=== PATIENT | male | born 1975 | race Two or more races ===

== ENCOUNTER 2024-10-07 16:26 | Emergency (ER) | payer BC, SELFPAY ==
[2024-10-07 16:27] VITALS: BMI 26.6
[2024-10-07 16:37] VITALS: BP 132/79; PULSE 82; RESP 16; TEMP 36.9; O2SAT 99
--- NOTE | 2024-10-07 16:41 | XR_ITS ---
Examination: PA lateral chest 2 views TECHNIQUE: Upright PA lateral chest 2 views Exam date and time: October 07, 2024 1655 hours INDICATIONS: Chest pain today. FINDINGS: Normal heart size. Lungs are clear. The osseous structures are intact IMPRESSION: No active disease
--- NOTE | 2024-10-07 16:41 | EKG_ITS ---
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
--- NOTE | 2024-10-07 16:51 | PD.EDRME ---
Rapid Medical Screening Exam RME Arrival date/time: 10/07/24 16:26 This is a 49-year-old male presents to the emergency department with complaints of mild upper chest chest pain. Patient does report history of 2 stents. I have greeted and performed a focused initial assessment of this patient. Initial appropriate labs ordered at this time. A comprehensive ED assessment and evaluation of the patient and analysis of all test and completion of medical decision making process will be conducted by additional ED provider. Chief Complaint: Chest Pain Time Seen by Provider: 10/07/24 16:37 Vital signs: Vital Signs Temperature 98.5 F 10/07/24 16:37 Pulse Rate 82 10/07/24 16:37 Respiratory Rate 16 10/07/24 16:37 Blood Pressure 132/79 H 10/07/24 16:37 Pulse Oximetry (%) 99 10/07/24 16:37 Oxygen Delivery Method Room Air 10/07/24 16:37
[2024-10-07 16:57] LABS: Basophils # (Auto) 0.1 Thou/mm3 (0.0-0.2); Basophils % (Auto) 1 % (0-2.5); Eosinophils # (Auto) 0.2 Thou/mm3 (0.0-0.5); Eosinophils % (Auto) 3 % (0-10); Hematocrit 39.9 % (41.0-53.0); Hemoglobin 15.1 g/dL (13.5-16.0); Immature Granulocytes % (Auto) 0 % (0-0); Immature Granulocytes Auto 0.02 Thou/mm3 (0.00-0.00); Lymphocytes # (Auto) 1.5 Thou/mm3 (1.0-4.8); Lymphocytes % (Auto) 27 % (10-50); Mean Corpuscular HGB Conc 37.8 g/dl (31.0-37.0); Mean Corpuscular Hemoglobin 31.1 pg (25.0-35.0); Mean Corpuscular Volume 82 fL (80-100); Monocytes # (Auto) 0.4 Thou/mm3 (0.0-0.8); Monocytes % (Auto) 7 % (0-12); Neutrophils # (Auto) 3.4 Thou/mm3 (1.8-7.7); Neutrophils % (Auto) 62 % (37-80); Nucleated Red Blood Cell % 0 /100 WBC (0); Platelet Count 230 Thou/mm3 (140-440); RDW Standard Deviation 43.5 fL (35.1-43.9); Red Blood Count 4.86 Miln/mm3 (4.50-5.90); White Blood Count 5.5 Thou/mm3 (3.8-10.6)
[2024-10-07 17:05] LABS: Collection Type, Urine Clean Catch; RBC,Urine 0 /hpf (0-3); Squamous Epithelial Cell,Urine 0 /hpf (0-5)
[2024-10-07 17:15] LABS: Bilirubin,Urine Negative (Negative); Blood,Urine Negative (Negative); Clarity,Urine Clear (Clear/Hazy); Color,Urine Colorless (Lt Yel-Yel); Glucose, Urine 4+ (Negative); Ketones,Urine Negative (Negative); Leukocyte Esterase,Urine Negative (Negative); Nitrite,Urine Negative (Negative); Protein,Urine Negative (Neg - Trace); Specific Gravity,Urine 1.033 (1.001-1.035); Urobilinogen,Urine Negative mg/dL (0.0-1.0); WBC,Urine < 1 /hpf (0-5)
[2024-10-07 17:48] LABS: Alanine Aminotransferase 33 U/L (10-49); Albumin, Serum 4.6 gm/dL (3.5-5.0); Albumin/Globulin Ratio 2.4 (1.2-2.2); Alkaline Phosphatase 140 U/L (46-116); Anion Gap 11 (7-16); Aspartate Amino Transferase 51 U/L (0-34); BUN/Creatinine Ratio 15 Ratio (12-20); Bilirubin,Total 0.3 mg/dL (0.3-1.2); Blood Urea Nitrogen 27 mg/dL (9-23); Calcium 10.6 mg/dL (8.3-10.6); Calcium (Corrected) 10.6 mg/dL (8.5-10.1); Carbon Dioxide 25.1 mMol/L (20.0-31.0); Chloride 94 mMol/L (98-107); Creatinine (Component) 1.8 mg/dL (0.6-1.3); Estimated Creatinine Clearance 45.4 mL/min (>60); Globulin 1.9 gm/dL (2.3-3.5); Lipase 56 U/L (12-53); Magnesium 2.2 mg/dL (1.6-2.6); Osmolality,Calculated 284 (275-295); Sodium 130 mMol/L (136-145); Total Protein 6.5 gm/dL (5.7-8.2); Troponin I < 0.020 ng/mL (0.0-0.045); eGFR 45 See Note
[2024-10-07 17:55] LABS: Glucose 444 mg/dL (74-106)
--- NOTE | 2024-10-07 20:19 | PD.EDCHEST ---
ED Chest Pain RME/HPI General Chief Complaint: Chest Pain Stated Complaint: CHEST PAIN Time Seen by Provider: 10/07/24 16:37 Source: patient Arrival date/time: 10/07/24 16:26 Mode of arrival: ambulatory Limitations: no limitations RME / HPI RME / HPI narrative: 10/07/24 16:26 This is a 49-year-old male presents to the emergency department with complaints of mild upper chest chest pain. Patient does report history of 2 stents. I have greeted and performed a focused initial assessment of this patient. Initial appropriate labs ordered at this time. A comprehensive ED assessment and evaluation of the patient and analysis of all test and completion of medical decision making process will be conducted by additional ED provider. DR WHALEN MAIN ED EVALUATION: 49-year-old male presenting to the Emergency Department via private vehicle with complaints of intermittent chest pain for the past 2-3 days, accompanied by dizziness. The patient has a history of myocardial infarction two years ago with 2 stent placement and states that his current chest pain feels similar to his previous cardiac event. He describes the chest pain as a pressure-like sensation, comes and goes, lasting seconds to minutes. He denies recent fever or travel and has no history of tobacco, alcohol, or substance use. Related Data Home Medications ?Medication ?Instructions ?Recorded ?Confirmed insulin degludec 100 unit/mL (3 80 unit subcut QDAY 02/05/18 08/18/18 mL) subcutaneous pen (Tresiba FlexTouch U-100 insulin) metformin 1,000 mg tablet 1,000 mg PO BID 02/05/18 08/18/18 gemfibrozil 600 mg tablet (Lopid) 600 mg PO BID 02/22/18 08/18/18 metoprolol succinate 50 mg 50 mg PO QDAY 08/18/18 08/18/18 tablet,extended release 24 hr Previous Rx's ?Medication ?Instructions ?Recorded hydrocodone 5 mg-acetaminophen 300 1 tab PO QID PRN pain #40 tabs 08/19/18 mg tablet (Vicodin) Allergies Allergy/AdvReac Type Severity Reaction Status Date / Time semaglutide (From Ozempic) Allergy Verified 10/07/24 16:31 Past Medical History Past Medical History NEUROLOGIC: Negative Neurological Disorders or Seizures CARDIAC: Positive Cardiac Disorders, Myocardial Infarction, Angina, Coronary Artery Disease, Hypercholesterolemia, Edema and Hypertension; Negative Congestive Heart Failure RESPIRATORY: Positive Asthma and Bronchitis; Negative Chronic Obstructive Pulmonary Disease (COPD) GASTROINTESTINAL: Negative Gastrointestinal Disorders GENITOURINARY: Positive Inguinal Hernia (Repaired); Negative Genitourinary Disorders or Renal Disease MUSCULOSKELETAL: Positive Musculoskeletal Disorders and Fractures (right hand) ENDOCRINE: Positive Endocrine Disorders and Diabetes Mellitus Type 2; Negative Diabetes Mellitus Type 1 or Hypothyroidism HEMATOLOGIC: Negative Blood Disorders or Anemia PSYCHO/SOCIAL: Positive Depression (long time ago) OTHER HISTORY: Positive Blood Transfusions, Chemotherapy (Lymphoma), Radiation Therapy (30 years ago) and Chicken Pox; Negative Hospitalization, Autoimmune Disease, Falls, Blood Transfusion Reaction, Anesthesia Reactions or Organ Transplant Family History FAMILY HISTORY: Positive Family Cancer (mom-stomach tumor, benign) Surgical History SURGICAL: Positive Cardiac Surgery, Coronary Stent and Angiogram; Negative Organ Transplant Social History SMOKING STATUS: Never smoker ED Exam Narrative Physical exam: GENERAL APPEARANCE: alert and oriented x 4, well-developed, well-nourished, no acute distress VITALS: All vitals were reviewed and the pulse ox is 98% on room air, which is normal according to my interpretation. HEENT: Normocephalic, atraumatic; pupils equal, round, reactive to light; EOMI; mucous membranes pink, moist; oropharynx clear NECK: Supple LUNGS: CTABL; no wheezes, no rales, no rhonchi HEART: Regular rate, regular rhythm; normal S1, S2; no murmurs ABDOMEN: non distended; normal BS; soft, no tenderness, no guarding, no rebound; no masses, no organomegaly, no hernia BACK: no CVA tenderness EXTREMITIES: atraumatic; no edema NEUROLOGIC: awake; alert and oriented x4; cranial nerves II-XII grossly intact; no focal sensory or motor deficits PSYCHIATRIC: appropriate mood and affect SKIN: warm, dry, normal color; no rashes General Limitations: Present no limitations Course Course Course Narrative: CXR is ordered for determining etiology of chest pain. Quality Measures none Orders Category Date Time Status EKG (ED ONLY) *Do not use* NOW Care 10/07/24 16:41 Completed NPO STAT Care 10/07/24 16:41 Completed EKG (ED Only) Stat Exams 10/07/24 16:41 Draft XR chest 2V Stat Exams 10/07/24 16:41 Completed A1C [Glycohemoglobin w (eAG)] Stat Lab 10/07/24 21:15 Completed CBC Stat Lab 10/07/24 16:51 Completed Comprehensive Metabolic Panel Stat Lab 10/07/24 16:51 Completed Lipase Stat Lab 10/07/24 16:51 Completed Magnesium Stat Lab 10/07/24 16:51 Completed Troponin I Stat Lab 10/07/24 16:51 Completed Troponin I Stat Lab 10/07/24 21:15 Completed Urinalysis Stat Lab 10/07/24 17:01 Completed Aspirin Chew Med 10/07/24 20:16 Discontinued 324 mg PO X1 ONE Insulin Regular Med 10/07/24 20:02 Discontinued 5 unit IV X1 ONE Sodium Chloride 0.9% 1000 ml [Ns] 1,000 ml Med 10/07/24 20:02 Discontinued IV 999 mls/hr Vital Signs Vital signs: Vital Signs Temperature 98.5 F 10/07/24 16:37 Pulse Rate 82 10/07/24 16:37 Respiratory Rate 16 10/07/24 16:37 Blood Pressure 132/79 H 10/07/24 16:37 Pulse Oximetry (%) 99 10/07/24 16:37 Oxygen Delivery Method Room Air 10/07/24 16:37 Chest Pain MDM Narrative MDM Narrative:: Scribe Attestation: IMaria Esther am scribing for and in the presence of Dr. Whalen. Provider Notation: Although this document has been carefully reviewed, there may still be some phonetic and other typographical errors. These errors are purely grammatical due to imperfections in the software program and should not be construed in any way to compromise the substance of the patient's medical care during this visit. Patient data External records reviewed:: [facility] previous records Clinical information provided by:: patient Social determinants that could affect healthcare access:: none Patient has the following chronic illnesses:: see PMH How is presenting disease/condition affected by chronic disease/condition?: uneffected by Evaluation data The following diagnostics were reviewed and interpreted by me:: lab results, radiology exam(s) and EKG tracing(s) Lab and/or radiology exams considered but not ordered:: na Interpretation Summary: I personally reviewed the radiology data and agree with the radiologist's interpretation. Examination: PA lateral chest 2 views TECHNIQUE: Upright PA lateral chest 2 views Exam date and time: October 07, 2024 1655 hours INDICATIONS: Chest pain today. FINDINGS: Normal heart size. Lungs are clear. The osseous structures are intact IMPRESSION: No active disease Dictated By: Ascencion Pablo MD EKG manually interpreted by me on 10/07/24 at 16:47 shows normal sinus rhythm at a rate of 83 bpm, with no ST elevation or acute ischemic changes. Overall, the interpretation is normal Medications / Prescriptions Medications or Prescriptions considered but not ordered:: na Medication administrations:: Medication Administration History Discontinued Medications Aspirin (Aspirin 81 Mg Chew) 324 mg PO X1 ONE Stop: 10/07/24 20:17 Last Admin: 10/07/24 20:27 Dose: 324 mg Documented By: SILVESTRE Sodium Chloride (Ns) 1,000 mls @ 999 mls/hr IV .Q1H1M ONE Stop: 10/07/24 21:02 Last Infusion: 10/07/24 21:37 Dose: Infused Documented By: Admin: 10/07/24 20:27 Dose: 999 mls/hr Documented By: SILVESTRE Insulin Human Regular (Insulin Hum Regular 1 Unit/0.01 Ml (Per Unit)) 5 unit IV X1 ONE Stop: 10/07/24 20:03 Last Admin: 10/07/24 20:28 Dose: 5 unit Documented By: SILVESTRE Co-signed By: ADAM as above Consultations Consultation(s) initiated? (list below): No Diagnosis Chest Pain Differential Diagnosis: stable angina, atypical chest pain, costochondritis and chest pain Most likely diagnosis given after review of the tests above:: Chest pain, Hyperglycemia Admission Indicated Admission indicated?: not indicated Admission Request Was there a request for admission?: No Disposition Plan Disposition Plan: Discharge Discharge Attestation Discharge Attestation: The patient and all family members were given an opportunity to ask questions and understood the discharge instructions. Discharge instructions specifically effects, indications for sooner follow up or return to the emergency department, and the expected course of current diagnosis. Patient condition: Stable Discharge Plan Plan Patient Disposition: HOME (Self Care) Prescriptions/Referrals Prescriptions/Med Rec: No Action metformin 1,000 mg Tablet 1,000 mg PO BID insulin degludec [Tresiba FlexTouch U-100] 100 unit/mL (3 mL) Insulin Pen 80 unit SUB-Q QDAY gemfibrozil [Lopid] 600 mg Tablet 600 mg PO BID metoprolol succinate 50 mg Tablet Extended Release 24 Hr 50 mg PO QDAY hydrocodone-acetaminophen [Vicodin] 5-300 mg tablet 1 tab PO QID MDD 6 PRN (Reason: pain) Qty: 40 0RF Referrals: Berry Walsh MD [Primary Care Provider] - In 1 week Problem List Clinical Impression: Chest pain, Hyperglycemia Patient/Caregiver Discharge Instructions Education Materials: ED Chest Pain, Uncertain Cause, ED Diabetes with High Blood Sugar Print Language: [place] Stand Alone Forms: [facility] Award Info., Patient Portal Info Letter
[2024-10-07 20:23] VITALS: BP 140/80; PULSE 78; RESP 18; O2SAT 98
[2024-10-07] MEDS: SODIUM CHLORIDE 0.9% 1000 ML 1,000 ML 999 ML IV (20:27)
[2024-10-07] MEDS: ASPIRIN 81 MG CHEW 324 MG PO (20:27)
[2024-10-07] MEDS: INSULIN HUM REGULAR 1 UNIT/0.01 ML (PER UNIT) 5 UNIT IV (20:28)
[2024-10-07 21:42] LABS: Glucose Estimated Average 306 mg/dL (80-131); Hemoglobin A1C 12.3 % Hgb (4.8-6.0)
[2024-10-07 22:18] LABS: Troponin I < 0.020 ng/mL (0.0-0.045)
[2024-10-07 23:11] VITALS: BP 146/79; PULSE 63; RESP 18; O2SAT 98
== END 2024-10-07 23:13 | disposition home or self-care (01) ==
PROVIDERS: Nurse Practitioner Primary Care; Emergency Provider Emergency Medicine; PCP Family Medicine
DX: R07.89 Other chest pain (principal); I25.2 Old myocardial infarction; R73.9 Hyperglycemia, unspecified
CPT/HCPCS: 36415; 71046; 80053; 81001; 83036; 83690; 83735; 84484; 85025; 93005; 96360; 99284; J1815; J7030; A9270

== ENCOUNTER → 2025-07-31 | Outpatient (CLI) | payer BC, SELFPAY ==
[2025-07-31 08:05] LABS: Collection Type, Urine Clean Catch
[2025-07-31 08:36] LABS: Basophils # (Auto) 0.0 Thou/mm3 (0.0-0.2); Basophils % (Auto) 1 % (0-2.5); Eosinophils # (Auto) 0.1 Thou/mm3 (0.0-0.5); Eosinophils % (Auto) 3 % (0-10); Hematocrit 42.9 % (41.0-53.0); Hemoglobin 13.9 g/dL (13.5-16.0); Immature Granulocytes Auto 0.02 Thou/mm3 (0.00-0.00); Lymphocytes # (Auto) 1.4 Thou/mm3 (1.0-4.8); Lymphocytes % (Auto) 33 % (10-50); Mean Corpuscular HGB Conc 32.4 g/dl (31.0-37.0); Mean Corpuscular Hemoglobin 27.7 pg (25.0-35.0); Mean Corpuscular Volume 86 fL (80-100); Monocytes # (Auto) 0.3 Thou/mm3 (0.0-0.8); Monocytes % (Auto) 7 % (0-12); Neutrophils # (Auto) 2.4 Thou/mm3 (1.8-7.7); Neutrophils % (Auto) 55 % (37-80); Nucleated Red Blood Cell # 0.00 Thou/mm3 (0.00-0.00); Nucleated Red Blood Cell % 0 /100 WBC (0); Platelet Count 200 Thou/mm3 (140-440); RDW Standard Deviation 45.4 fL (35.1-43.9); Red Blood Count 5.02 Miln/mm3 (4.50-5.90); White Blood Count 4.2 Thou/mm3 (3.8-10.6)
[2025-07-31 08:57] LABS: Bilirubin,Urine Negative (Negative); Blood,Urine Negative (Negative); Clarity,Urine Clear (Clear/Hazy); Color,Urine Lt-Yellow (Lt Yel-Yel); Glucose, Urine 4+ (Negative); Ketones,Urine Negative (Negative); Leukocyte Esterase,Urine Negative (Negative); Nitrite,Urine Negative (Negative); PH,Urine 5.5 (5.0-7.0); Protein,Urine Negative (Neg - Trace); RBC,Urine 2 /hpf (0-3); Specific Gravity,Urine 1.038 (1.001-1.035); Squamous Epithelial Cell,Urine < 1 /hpf (0-5); Urobilinogen,Urine Negative mg/dL (0.0-1.0); WBC,Urine 1 /hpf (0-5)
[2025-07-31 08:58] LABS: Alanine Aminotransferase 23 U/L (10-49); Albumin, Serum 5.0 gm/dL (3.5-5.0); Albumin/Globulin Ratio 2.0 (1.2-2.2); Alkaline Phosphatase 79 U/L (46-116); Anion Gap 11 (7-16); Aspartate Amino Transferase 27 U/L (0-34); BUN/Creatinine Ratio 16 Ratio (12-20); Bilirubin,Total 0.4 mg/dL (0.3-1.2); Blood Urea Nitrogen 18 mg/dL (9-23); Calcium 10.2 mg/dL (8.3-10.6); Calcium (Corrected) 10.2 mg/dL (8.5-10.1); Carbon Dioxide 27.8 mMol/L (20.0-31.0); Cardiac Risk Estimate 4.6 RATIO (4.0-6.7); Chloride 103 mMol/L (98-107); Cholesterol 114 mg/dL (132-200); Creatinine (Component) 1.1 mg/dL (0.6-1.3); Globulin 2.5 gm/dL (2.3-3.5); Glucose 188 mg/dL (74-106); HDL Cholesterol 25 mg/dL (40-60); LDL Cholesterol,Calculated 17 mg/dL (0-130); Osmolality,Calculated 290 (275-295); Potassium 4.2 mMol/L (3.4-5.1); Sodium 142 mMol/L (136-145); Total Protein 7.5 gm/dL (5.7-8.2); Triglycerides 360 mg/dL (30-150); eGFR > 60 See Note
[2025-07-31 09:22] LABS: Creatinine MALB Rnd Ur 72 mg/dL (30-125); Microalbumin Creat Ratio 57 mg/gCrea (<30); Microalbumin, Random Urine 41 mg/L (0-300)
[2025-07-31 09:50] LABS: Glucose Estimated Average 332 mg/dL (80-131); Hemoglobin A1C 13.2 % Hgb (4.8-6.0)
== END | disposition home or self-care (01) ==
LOC: COPL 07:36
PROVIDERS: PCP Family Medicine; Referring Provider Family Medicine; Visit Provider Family Medicine
DX: E11.65 Type 2 diabetes mellitus with hyperglycemia (principal)
CPT/HCPCS: 36415; 80053; 80061; 81001; 82043; 82570; 83036; 85025